=== PATIENT | male | born 2000 | race Asian ===

== ENCOUNTER 2021-08-29 20:47 | Emergency (ER) | payer OTHER ==
--- NOTE | 2021-08-29 21:02 | ED Physician Documentation ---
PD HPI MHE - Stated complaint Stated Complaint: SI - History obtained from History obtained from: Patient - History of Present Illness Primary symptom: Suicidal ideation Timing - onset: Chronic Similar symptoms before: No diagnosis Recently seen: Not recently seen - Additional information Additional information: presents to ED with feeling depressed and having suicidal thoughts. He tells me he has had similar feelings for a few years but hasn't discussed this with anyone before. Tonight he says he made a glib comment meant as a joke but that it referenced self-harm, and this led to a serious discussion with [facility] during which patient apparently disclosed his depressed feelings; he says that during the discussion, he mentioned ways he would kill himself such as shooting himself, stepping into traffic, or jumping from a dangerous height. However, patient says he has no intention of killing himself. Review of Systems Neurologic: denies: Confused, Altered mental status, Headache Psychiatric: reports: Depressed. denies: Suicidal (patient denies suicidal intent), Homicidal, Hallucinations, Delusions, Anxiety, Insomnia PD PAST MEDICAL HISTORY - Past Medical History Past Medical History: No - Present Medications Home Medications: Ambulatory Orders Medication Instructions Recorded Confirmed No Known Home Medications 08/29/21 08/29/21 - Allergies Allergies/Adverse Reactions: Allergies Allergy/AdvReac Type Severity Reaction Status Date / Time No Known Drug Allergies Allergy Verified 08/29/21 21:01 PD ED PE NORMAL - Vitals Vital signs reviewed: Yes - General General: Alert and oriented X 3, No acute distress, Well developed/nourished - Cardiac Cardiac: RRR, No murmur - Respiratory Respiratory: No respiratory distress, Clear bilaterally - Neuro Neuro: Alert and oriented X 3 - Psych Psych: Normal mood, Normal affect Results - Vitals Vitals: Vital Signs - 24 hr 08/29/21 08/30/21 21:01 00:26 Temperature 37.3 C 36.9 C Heart Rate 91 98 Respiratory 18 18 Rate Blood Pressure 142/86 H 130/82 H O2 Saturation 99 99 Oxygen O2 Source Room air PD MEDICAL DECISION MAKING - ED course Complexity details: considered differential, d/w patient ED course: patient strongly denies suicidal intent on my HPI. I asked patient if he would feel safe being discharged from the ED and he answers in the affirmative. He expresses interest in pursuing outpatient follow up with a mental health professional. I gave him other options/alternatives to d/c: staying in ED until SW consult available in the morning, obtaining telepsychiatric consult now, or transfer to inpatient mental health facility (if he feels unsafe being discharged or isn't confident that he is safe). He prefers discharge and again expresses interest in obtaining outpatient follow up for mental health. I explained that discharge from ED would involve having someone with him overnight (as long as he is not left alone) and [place] of outpatient follow up as well as to reevaluate safety of proceeding in outpatient setting. I do not have information at the time of my H+P that would indicate need to hold patient in ED against his will; he is able to contract for safety with me, will notify someone or call 911 if he has thoughts of self-harm. Departure - Departure Disposition: 01 Home, Self Care Clinical Impression: Depression Qualifiers: Depression Type: unspecified Qualified Code(s): F32.A - Depression, unspecified Condition: Good Instructions: ED Depression Follow-Up: [facility]IK[facility] Stephens [Provider Group] Comments: You will need to be reevaluated in the [place] the [place] [place] by medical. You would likely benefit from counseling and this process can be initiated [place]. Discharge Date/Time: 08/30/21 00:33
[2021-08-30 00:27] VITALS: BP 130/82
== END 2021-08-30 00:33 | disposition home or self-care (01) ==
LOC: ED 20:47
DX: F32.A Depression, unspecified (principal)
CPT/HCPCS: 99281; 99283